=== PATIENT | female | born 2000 | race Caucasian/White ===

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

== ENCOUNTER 2022-01-11 19:39 | Emergency (ER) | payer BC ==
[2022-01-11 20:18] VITALS: TEMP 98.7
--- NOTE | 2022-01-11 20:47 | XR ---
EXAMINATION TYPE: XR abdomen 1V DATE OF EXAM: 01/11/2022 COMPARISON: NONE HISTORY: Epigastric pain TECHNIQUE: 2 views FINDINGS: 2 views upright show no sign of intestinal obstruction or pneumoperitoneum. Fecal pattern i s normal. No sign of a mass. No pathologic calcifications over the kidneys. IMPRESSION: Nonacute abdomen.
[2022-01-11] MEDS ORDERED: SODIUM CHLORIDE 0.9% 1,000 ML IV STA (20:57)
[2022-01-11] MEDS ORDERED: DICYCLOMINE 10 MG/ML 2 ML AMP IM STA (20:58)
[2022-01-11] MEDS ORDERED: PANTOPRAZOLE 40 MG/10 ML VIAL IVP STA (21:02)
--- NOTE | 2022-01-11 21:04 | ED ---
Abdominal Pain HPI - General Chief Complaint: Abdominal Pain Stated Complaint: ABD pain Time Seen by Provider: 01/11/22 20:49 Source: patient, family, RN notes reviewed, old records reviewed Mode of arrival: ambulatory Limitations: no limitations - History of Present Illness Initial Comments: Nontoxic-appearing obese 21-year-old female presents to the emergency room with family complaining of epigastric and upper abdominal pain since Sunday. She states he's had multiple episodes of vomiting that is green in color. She is also having diarrhea every time she vomits. Denies any fevers. She does have history of GERD, irritable bowel syndrome, anxiety and depression. She states she has seen gastroenterology in the past and was placed on Bentyl but has not had this medication in over 2 weeks. She denies any fevers. She is sexually active denies any vaginal discharge or vaginal bleeding. Does have an IUD. MD Complaint: abdominal pain -: days(s) (4) Location: LUQ, RUQ, epigastric Severity scale (1-10): 6 Quality: sharp, dull Consistency: constant Improves With: nothing Worsens With: other (Palpation) Associated Symptoms: nausea, vomiting, diarrhea - Related Data Home Medications Medication Instructions Recorded Confirmed L.acidoph,Paracasei, B.lactis 1 cap PO AC-TID 11/19/16 12/01/16 [Probiotic] Multivitamins, Thera [Multivitamin 1 tab PO DAILY 11/19/16 12/01/16 (formulary)] Psyllium Husk [Metamucil] 0.4 gm PO BID 11/19/16 12/01/16 Ranitidine HCl [Zantac] 150 mg PO QAM 11/19/16 12/01/16 HYDROcodone/APAP 5-325MG [[place] 1 tab PO Q6H PRN 12/01/16 12/01/16 5-325] Previous Rx's Medication Instructions Recorded Amoxicillin/Potassium Clav 1 each PO Q12HR #28 tab 11/23/16 [Augmentin 875-125 Tablet] HYDROcodone/APAP 5-325MG [[place] 1 - 2 tab PO Q4-6H PRN #45 tab 12/04/16 5-325] Cephalexin [Keflex] 500 mg PO Q12HR 5 Days #10 cap 01/11/22 Dicyclomine [Bentyl] 20 mg PO TID #30 tablet 01/11/22 Allergies Allergy/AdvReac Type Severity Reaction Status Date / Time No Known Allergies Allergy Verified 01/11/22 20:18 Review of Systems ROS Statement: Those systems with pertinent positive or pertinent negative responses have been documented in the HPI. ROS Other: All systems not noted in ROS Statement are negative. Past Medical History Past Medical History: GERD/Reflux Additional Past Medical History / Comment(s): FX LEFT CLAVICLE (FELL OFF GOLF CART ON 11/23/16). MOTHER STATES PATIENT HAS HAD PERIODIC UPPER ABDOMINAL PAIN, THAT SEEMS TO BE RELIEVED SHE HAS BEEN ON ANTIBIOTICS. History of Any Multi-Drug Resistant Organisms: None Reported Past Surgical History: No Surgical Hx Reported Past Anesthesia/Blood Transfusion Reactions: No Reported Reaction, Motion Sickness Additional Past Anesthesia/Blood Transfusion Reaction / Comment(s): NEVER HAD ANESTHESIA. Past Psychological History: Anxiety, Depression Smoking Status: Never smoker Past Alcohol Use History: Rare Past Drug Use History: Marijuana - Past Family History Mother Family Medical History: No Reported History General Exam Limitations: no limitations General appearance: alert, in no apparent distress Head exam: Present: atraumatic Eye exam: Absent: scleral icterus, conjunctival injection, periorbital swelling, periorbital tenderness Neck exam: Present: full ROM. Absent: meningismus Respiratory exam: Present: normal lung sounds bilaterally. Absent: respiratory distress, wheezes, rales, rhonchi, stridor, accessory muscle use, decreased tasha th sounds Cardiovascular Exam: Present: tachycardia GI/Abdominal exam: Present: soft, tenderness (RUQ, epigastric, LUQ). Absent: distended, rigid Extremities exam: Present: normal capillary refill. Absent: pedal edema Back exam: Present: normal inspection. Absent: tenderness, CVA tenderness (R), CVA tenderness (L), rash noted Neurological exam: Present: alert, oriented X3 Psychiatric exam: Present: normal affect, normal mood Skin exam: Present: warm, dry, normal color. Absent: rash, cyanosis, diaphoretic, petechiae, pallor Course Vital Signs 01/11/22 01/11/22 01/11/22 20:16 22:59 23:20 Temperature 98.7 F Pulse Rate 108 H 97 88 Respiratory 20 18 Rate Blood Pressure 153/85 133/74 O2 Sat by Pulse 97 100 99 Oximetry Medical Decision Making - Medical Decision Making Patient presents with nausea vomiting diarrhea and abdominal pain for 4 days. X-ray reviewed by me shows no evidence of free air or obstruction. IUD seen. Radiologist impression nonacute abdomen. Mild leukocytosis of 11.7 likely reactive to vomiting. Urinalysis shows 4+ ketones patient was given a liter and half of normal saline. UA with WBC and occasional bacteria. negative. She was treated with 1 g of Rocephin for UTI. She was also given Bentyl and Protonix for abdominal pain with relief. She was previously prescribed as this is a prescription she ran out of 2 weeks ago for her IBS. Her pain is likely related to her GERD and irritable bowel syndrome. Vital signs are stable, patient is afebrile. No right lower quadrant or left lower quadrant pain. She will be prescribed Keflex for UTI, Bentyl for IBS. She was directed to follow up with her primary care doctor as scheduled tomorrow and return to the emergency room with any new or concerning symptoms. Patient is agreeable to this plan of care. Case discussed with Dr. Dong - Lab Data Result diagrams: 01/11/22 21:31 01/11/22 21:31 Lab Results 01/11/22 01/11/22 01/11/22 Range/Units 21:31 21:31 21:31 WBC 11.7 H (4.0-11.0) k/uL RBC 5.90 H (3.80-5.40) m/uL Hgb 14.1 (11.4-16.0) gm/dL Hct 44.7 (34.0-46.0) % MCV 75.8 L (80.0-100.0) fL MCH 24.0 L (25.0-35.0) pg MCHC 31.6 (31.0-37.0) g/dL RDW 15.2 (11.5-15.5) % Plt Count 501 H (150-450) k/uL MPV 6.8 Neutrophils % 72 % Lymphocytes % 20 % Monocytes % 5 % Eosinophils % 1 % Basophils % 1 % Neutrophils # 8.4 H (1.3-7.7) k/uL Lymphocytes # 2.4 (1.0-4.8) k/uL Monocytes # 0.6 (0-1.0) k/uL Eosinophils # 0.1 (0-0.7) k/uL Basophils # 0.1 (0-0.2) k/uL Hypochromasia Slight Microcytosis Slight PT 11.3 (9.0-12.0) sec INR 1.0 (<1.2) APTT 27.6 (22.0-30.0) sec Sodium 139 (137-145) mmol/L Potassium 3.8 (3.5-5.1) mmol/L Chloride 99 (98-107) mmol/L Carbon Dioxide 23 (22-30) mmol/L Anion Gap 17 mmol/L BUN 19 H (7-17) mg/dL Creatinine 0.81 (0.52-1.04) mg/dL Est GFR (CKD-EPI)AfAm >90 (>60 ml/min/1.73 sqM) Est GFR (CKD-EPI)NonAf >90 (>60 ml/min/1.73 sqM) Glucose 103 H (74-99) mg/dL Plasma Lactic Acid Param (0.7-2.0) mmol/L Calcium 10.0 (8.4-10.2) mg/dL Total Bilirubin 0.7 (0.2-1.3) mg/dL AST 41 H (14-36) U/L ALT 62 H (4-34) U/L Alkaline Phosphatase 93 (38-126) U/L Total Protein 8.8 H (6.3-8.2) g/dL Albumin 5.4 H (3.5-5.0) g/dL Amylase 40 (30-110) U/L Lipase 74 (23-300) U/L Urine Color Urine Appearance (Clear) Urine pH (5.0-8.0) Ur Specific [place] (1.001-1.035) Urine Protein (Negative) Urine Glucose (UA) (Negative) Urine Ketones (Negative) Urine Blood (Negative) Urine Nitrite (Negative) Urine Bilirubin (Negative) Urine Urobilinogen (<2.0) mg/dL Ur Leukocyte Esterase (Negative) Urine RBC (0-5) /hpf Urine WBC (0-5) /hpf Ur Squamous Epith Cells (0-4) /hpf Urine Bacteria (None) /hpf Urine Mucus (None) /hpf Urine HCG, Qual (Not Detectd) 11/09/22 11/09/22 11/09/22 Range/Units 21:31 21:46 21:46 WBC (4.0-11.0) k/uL RBC (3.80-5.40) m/uL Hgb (11.4-16.0) gm/dL Hct (34.0-46.0) % MCV (80.0-100.0) fL MCH (25.0-35.0) pg MCHC (31.0-37.0) g/dL RDW (11.5-15.5) % Plt Count (150-450) k/uL MPV Neutrophils % % Lymphocytes % % Monocytes % % Eosinophils % % Basophils % % Neutrophils # (1.3-7.7) k/uL Lymphocytes # (1.0-4.8) k/uL Monocytes # (0-1.0) k/uL Eosinophils # (0-0.7) k/uL Basophils # (0-0.2) k/uL Hypochromasia Microcytosis PT (9.0-12.0) sec INR (<1.2) APTT (22.0-30.0) sec Sodium (137-145) mmol/L Potassium (3.5-5.1) mmol/L Chloride (98-107) mmol/L Carbon Dioxide (22-30) mmol/L Anion Gap mmol/L BUN (7-17) mg/dL Creatinine (0.52-1.04) mg/dL Est GFR (CKD-EPI)AfAm (>60 ml/min/1.73 sqM) Est GFR (CKD-EPI)NonAf (>60 ml/min/1.73 sqM) Glucose (74-99) mg/dL Plasma Lactic Acid Param 1.5 (0.7-2.0) mmol/L Calcium (8.4-10.2) mg/dL Total Bilirubin (0.2-1.3) mg/dL AST (14-36) U/L ALT (4-34) U/L Alkaline Phosphatase (38-126) U/L Total Protein (6.3-8.2) g/dL Albumin (3.5-5.0) g/dL Amylase (30-110) U/L Lipase (23-300) U/L Urine Color Yellow Urine Appearance Turbid H (Clear) Urine pH 6.0 (5.0-8.0) Ur Specific [place] 1.041 H (1.001-1.035) Urine Protein 2+ H (Negative) Urine Glucose (UA) Negative (Negative) Urine Ketones 4+ H (Negative) Urine Blood Negative (Negative) Urine Nitrite Negative (Negative) Urine Bilirubin 1+ H (Negative) Urine Urobilinogen 4.0 (<2.0) mg/dL Ur Leukocyte Esterase Large H (Negative) Urine RBC 6 H (0-5) /hpf Urine WBC 34 H (0-5) /hpf Ur Squamous Epith Cells 77 H (0-4) /hpf Urine Bacteria Occasional H (None) /hpf Urine Mucus Many H (None) /hpf Urine HCG, Qual Not Detected (Not Detectd) Disposition Clinical Impression: UTI (urinary tract infection), Abdominal pain Disposition: HOME SELF-CARE Instructions (If sedation given, give patient instructions): Urinary Tract Infection in Women (ED), Abdominal Pain (ED) Additional Instructions: Take antibiotics and Bentyl as prescribed. Increase your fluid intake. Follow- up with the primary care doctor as scheduled tomorrow. Return to the emergency room with any new or concerning symptoms. Prescriptions: Dicyclomine [Bentyl] 20 mg PO TID #30 tablet Cephalexin [Keflex] 500 mg PO Q12HR 5 Days #10 cap Is patient prescribed a controlled substance at d/c from ED?: No Referrals: Jaswinder Ceballos DO [Primary Care Provider] - 1-2 days Time of Disposition: 22:49
[2022-01-11 22:02] LABS: Basophils # (A) 0.1 k/uL (0-0.2); Basophils % (A) 1 %; Eosinophils # (A) 0.1 k/uL (0-0.7); Eosinophils % (A) 1 %; HCT 44.7 % (34.0-46.0); HGB 14.1 gm/dL (11.4-16.0); Hypochromasia Slight; Lymphocytes # (A) 2.4 k/uL (1.0-4.8); Lymphocytes % (A) 20 %; MCHC 31.6 g/dL (31.0-37.0); MCV 75.8 fL (80.0-100.0); Mean Platelet Volume 6.8; Microcytosis Slight; Monocytes # (A) 0.6 k/uL (0-1.0); Monocytes % (A) 5 %; Neutrophils # (A) 8.4 k/uL (1.3-7.7); Neutrophils % (A) 72 %; Platelet Count 501 k/uL (150-450); RDW 15.2 % (11.5-15.5); WBC 11.7 k/uL (4.0-11.0)
[2022-01-11 22:12] LABS: Partial Thromboplastin Time 27.6 sec (22.0-30.0); Prothrombin Time 11.3 sec (9.0-12.0)
[2022-01-11 22:16] LABS: Appearance,Urine Turbid (Clear); Bacteria,Urine Occasional /hpf; Bilirubin,Urine 1+ (Negative); Blood,Urine Negative (Negative); Color,Urine Yellow; Glucose,Urine (UA) Negative (Negative); Ketones,Urine 4+ (Negative); Leukocyte Esterase,Urine Large (Negative); Mucus,Urine Many /hpf; Nitrite,Urine Negative (Negative); Protein,Urine 2+ (Negative); RBC,Urine 6 /hpf (0-5); Specific Gravity,Urine 1.041 (1.001-1.035); Squamous Epithelial Cell,Urine 77 /hpf (0-4); WBC,Urine 34 /hpf (0-5)
[2022-01-11 22:18] LABS: ALT 62 U/L (4-34); AST 41 U/L (14-36); African American GFR (CKD) >90 (>60 ml/min/1.73 sqM); Albumin 5.4 g/dL (3.5-5.0); Alkaline Phosphatase 93 U/L (38-126); Amylase 40 U/L (30-110); Anion Gap 17 mmol/L; Blood Urea Nitrogen 19 mg/dL (7-17); Carbon Dioxide 23 mmol/L (22-30); Chloride 99 mmol/L (98-107); Glucose 103 mg/dL (74-99); Lipase 74 U/L (23-300); Non-African American GFR(CKD) >90 (>60 ml/min/1.73 sqM); Potassium 3.8 mmol/L (3.5-5.1); Sodium 139 mmol/L (137-145); Total Bilirubin 0.7 mg/dL (0.2-1.3); Total Protein 8.8 g/dL (6.3-8.2)
[2022-01-11] MEDS ORDERED: cefTRIAXone IN SWFI 1,000 MG/10 ML SYRINGE IVP STA (22:19)
[2022-01-11] MEDS ORDERED: SODIUM CHLORIDE 0.9% 500 ML 500 ML IV ONE (22:21)
[2022-01-11] MEDS ORDERED: VANCOMYCIN IV PER PHARMACY 1 EACH MISC MISCELLANE PRN (22:39)
[2022-01-11] MEDS ORDERED: CEFEPIME 1 GM in SODIUM CHLORIDE 0.9% 50 ML IVPB STA (22:39)
[2022-01-11 23:20] VITALS: BP 133/74; PULSE 88; RESP 18
== END 2022-01-11 23:20 | disposition home or self-care (01) ==
LOC: EC 19:39
DX: N39.0 Urinary tract infection, site not specified (principal); K21.9 Gastro-esophageal reflux disease without esophagitis; F41.9 Anxiety disorder, unspecified; F32.A Depression, unspecified; F12.90 Cannabis use, unspecified, uncomplicated; Z79.899 Other long term (current) drug therapy
CPT/HCPCS: 36415; 80053; 82150; 83605; 83690; 85025; 85610; 85730; 81001; 81025; 87086; 74018; 99284; 96374; 96375; 96361 ×3; 96372; J0500; J0696; C9113

== ENCOUNTER 2022-02-22 11:07 | Emergency (ER) | payer BC ==
[2022-02-22 11:23] VITALS: RESP 20
[2022-02-22] MEDS ORDERED: SODIUM CHLORIDE 0.9% 1,000 ML IV STA (12:03)
--- NOTE | 2022-02-22 12:08 | ED ---
Abdominal Pain HPI - General Chief Complaint: Abdominal Pain Stated Complaint: abd pain Time Seen by Provider: 02/22/22 11:56 Source: patient, family, RN notes reviewed, old records reviewed Mode of arrival: ambulatory Limitations: no limitations - History of Present Illness Initial Comments: This is a nontoxic-appearing 21-year-old obese female that presents to the emergency room with family stating she was sent by her hand straightener Marilu Bernardo NP. She has orders for labs and stat CT of the abdomen related to chronic abdominal pain with persistent nausea vomiting. Patient states that abdominal pain became worse on Sunday night with mucousy diarrhea. Denies any fevers. Denies any chance of . MD Complaint: abdominal pain -: days(s) (4), month(s) Location: diffuse Radiation: none Severity scale (1-10): 6 Consistency: constant Improves With: nothing Worsens With: nothing Associated Symptoms: nausea, vomiting, diarrhea, chills - Related Data Home Medications Medication Instructions Recorded Confirmed Dicyclomine [Bentyl] 20 mg PO QID 02/22/22 02/22/22 Famotidine [Pepcid] 20 mg PO BID 02/22/22 02/22/22 Prochlorperazine [Compazine] 5 mg PO BID 02/22/22 02/22/22 Promethazine Suppository 12.5 mg RECTAL DAILY 02/22/22 02/22/22 [Phenergan] Venlafaxine HCl ER [Effexor Xr] 75 mg PO DAILY 02/22/22 02/22/22 Allergies Allergy/AdvReac Type Severity Reaction Status Date / Time Iodinated Contrast Media AdvReac Family Verified 02/22/22 13:28 history Review of Systems ROS Statement: Those systems with pertinent positive or pertinent negative responses have been documented in the HPI. ROS Other: All systems not noted in ROS Statement are negative. Past Medical History Past Medical History: GERD/Reflux Additional Past Medical History / Comment(s): FX LEFT CLAVICLE (FELL OFF GOLF CART ON 11/23/16). MOTHER STATES PATIENT HAS HAD PERIODIC UPPER ABDOMINAL PAIN, THAT SEEMS TO BE RELIEVED SHE HAS BEEN ON ANTIBIOTICS. History of Any Multi-Drug Resistant Organisms: None Reported Past Surgical History: No Surgical Hx Reported Past Anesthesia/Blood Transfusion Reactions: No Reported Reaction, Motion Sickness Additional Past Anesthesia/Blood Transfusion Reaction / Comment(s): NEVER HAD ANESTHESIA. Past Psychological History: Anxiety, Depression Smoking Status: Never smoker Past Alcohol Use History: Rare Past Drug Use History: Marijuana - Past Family History Mother Family Medical History: No Reported History General Exam Limitations: no limitations General appearance: alert, in no apparent distress Head exam: Present: atraumatic, normocephalic Eye exam: Present: normal appearance. Absent: scleral icterus, conjunctival injection, periorbital swelling ENT exam: Present: mucous membranes moist Neck exam: Present: full ROM. Absent: tenderness, meningismus, lymphadenopathy Respiratory exam: Present: normal lung sounds bilaterally. Absent: respiratory distress, accessory muscle use Cardiovascular Exam: Present: regular rate GI/Abdominal exam: Present: soft, tenderness (Diffuse). Absent: distended, rigid Back exam: Present: full ROM. Absent: tenderness, CVA tenderness (R), CVA tenderness (L), muscle spasm, paraspinal tenderness, vertebral tenderness, rash noted Neurological exam: Present: alert, oriented X3 Psychiatric exam: Present: anxious Skin exam: Present: warm, dry, normal color. Absent: cyanosis, diaphoretic, petechiae, pallor Course Vital Signs 02/22/22 11:21 Temperature 98.7 F Pulse Rate 82 Respiratory 20 Rate Blood Pressure 119/76 O2 Sat by Pulse 99 Oximetry Medical Decision Making - Medical Decision Making Patient has been seen multiple times in the emergency room for chronic abdominal pain. She was sent by gastroenterology today for CT and labs. CT abdomen and pelvis interpreted by the radiologist : No calcified gallstones. Mild hepatic steatosis. No inflammation or mass of the pancreas. No nodules or thickening of the adrenals. No hydronephrosis or nephrolithiasis or renal mass. Normal appendix. Impression is small bowel enteritis and left ovarian dermoid lesion. Labs show mild leukocytosis which is consistent with patient's vomiting. Electrolytes show a CRP of 1.6 and ESR of 30. Urinalysis 4+ ketones consistent with patient's persistent vomiting and dehydration. Influenza and RSV and coronavirus swab is negative. Patient was given droperidol and IV fluids. She was sitting up in the bed drinking water states she is feeling better. This is likely gastroenteritis. Directed to follow up with her hand straightener for continuation of care and return to the emergency room with a new concerning symptoms. She and mother are agreeable to this plan of care. Case discussed with Dr. Merlos Was pt. sent in by a medical professional or institution? 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 @ Mother Did you review nursing and triage notes? @ Agree Were old charts reviewed? @ Previous emergency room record Differential Diagnosis? @ Appendicitis, intestinal obstruction, viral illness, urinary tract infection, , cholecystitis EKG interpreted by me (3pts min.)? @ Not applicable X-rays interpreted by me (1pt min.)? @ Not applicable CT interpreted by me (1pt min.)? @ Yes, no evidence of free air or intestinal obstruction, IUD in place, left ovarian cyst U/S interpreted by me (1pt. min.)? @ Not applicable What testing was considered but not performed? (CT, X-rays, U/S, labs)? Why? @ None What meds were considered but not given? Why? @ Did consider using Bentyl if the droperidol and IV fluids did not resolve the patient's nausea vomiting. This medication was not needed. Did you discuss the management of the patient with other professionals? @ No Did you reconcile home meds? @ No Was smoking cessation discussed for >3mins.? @ No Was critical care preformed (if so, how long)? @ No Were there social determinants of health that impacted care today? How? (Homelessness, low income, unemployed, alcoholism, drug addiction, transportation, low edu. Level, literacy, decrease access to med. care, detention, rehab)? @ No Was there de-escalation of care discussed even if they declined? (Discuss DNR or withdrawal of care, Hospice)? @ Not applicable What co-morbidities impacted this encounter? (DM, HTN, Smoking, COPD, CAD, Cancer, CVA, Hep., AIDS, mental health diagnosis, sleep apnea, morbid obesity)? @ Morbid obesity Was patient admitted / discharged? @ Discharged Undiagnosed new problem with uncertain prognosis? @ Not applicable Drug Therapy requiring intensive monitoring for toxicity (Heparin, Nitro, Insulin, Cardizem)? @ None Were any procedures done? @ None Diagnosis/symptom? @ Gastroenteritis, chronic abdominal pain Acute, or Chronic, or Acute on Chronic? @ Acute on chronic Uncomplicated (without systemic symptoms) or Complicated (systemic symptoms)? @ Uncomplicated Side effects of treatment? @ None Exacerbation, Progression, or Severe Exacerbation] @ Exacerbation Poses a threat to life or bodily function? @ No - Lab Data Result diagrams: 02/22/22 12:31 02/22/22 12:31 Lab Results 02/22/22 02/22/22 02/22/22 Range/Units 12:31 12:31 12:31 WBC 12.8 H (4.0-11.0) k/uL RBC 5.86 H (3.80-5.40) m/uL Hgb 14.2 (11.4-16.0) gm/dL Hct 44.3 (34.0-46.0) % MCV 75.6 L (80.0-100.0) fL MCH 24.2 L (25.0-35.0) pg MCHC 32.0 (31.0-37.0) g/dL RDW 15.6 H (11.5-15.5) % Plt Count 542 H (150-450) k/uL MPV 6.8 Neutrophils % 73 % Lymphocytes % 20 % Monocytes % 5 % Eosinophils % 1 % Basophils % 1 % Neutrophils # 9.3 H (1.3-7.7) k/uL Lymphocytes # 2.5 (1.0-4.8) k/uL Monocytes # 0.6 (0-1.0) k/uL Eosinophils # 0.1 (0-0.7) k/uL Basophils # 0.1 (0-0.2) k/uL Hypochromasia Slight Microcytosis Slight ESR 30 H (0-20) mm/hr Sodium 142 (137-145) mmol/L Potassium 4.3 (3.5-5.1) mmol/L Chloride 106 (98-107) mmol/L Carbon Dioxide 20 L (22-30) mmol/L Anion Gap 16 mmol/L BUN 17 (7-17) mg/dL Creatinine 0.69 (0.52-1.04) mg/dL Est GFR (CKD-EPI)AfAm >90 (>60 ml/min/1.73 sqM) Est GFR (CKD-EPI)NonAf >90 (>60 ml/min/1.73 sqM) Glucose 86 (74-99) mg/dL Plasma Lactic Acid Param 2.0 (0.7-2.0) mmol/L Calcium 10.2 (8.4-10.2) mg/dL Total Bilirubin 0.7 (0.2-1.3) mg/dL AST 44 H (14-36) U/L ALT 50 H (4-34) U/L Alkaline Phosphatase 102 (38-126) U/L C-Reactive Protein 1.6 H (<1.0) mg/dL Total Protein 9.1 H (6.3-8.2) g/dL Albumin 5.1 H (3.5-5.0) g/dL Amylase 46 (30-110) U/L Lipase 96 (23-300) U/L HCG, Qual Urine Color Urine Appearance (Clear) Urine pH (5.0-8.0) Ur Specific [place] (1.001-1.035) Urine Protein (Negative) Urine Glucose (UA) (Negative) Urine Ketones (Negative) Urine Blood (Negative) Urine Nitrite (Negative) Urine Bilirubin (Negative) Urine Urobilinogen (<2.0) mg/dL Ur Leukocyte Esterase (Negative) Urine RBC (0-5) /hpf Urine WBC (0-5) /hpf Ur Squamous Epith Cells (0-4) /hpf Urine Mucus (None) /hpf Influenza Type A (PCR) (Not Detectd) Influenza Type B (PCR) (Not Detectd) RSV (PCR) (Not Detectd) SARS-CoV-2 (PCR) (Not Detectd) 02/22/22 02/22/22 02/22/22 Range/Units 12:31 12:31 14:54 WBC (4.0-11.0) k/uL RBC (3.80-5.40) m/uL Hgb (11.4-16.0) gm/dL Hct (34.0-46.0) % MCV (80.0-100.0) fL MCH (25.0-35.0) pg MCHC (31.0-37.0) g/dL RDW (11.5-15.5) % Plt Count (150-450) k/uL MPV Neutrophils % % Lymphocytes % % Monocytes % % Eosinophils % % Basophils % % Neutrophils # (1.3-7.7) k/uL Lymphocytes # (1.0-4.8) k/uL Monocytes # (0-1.0) k/uL Eosinophils # (0-0.7) k/uL Basophils # (0-0.2) k/uL Hypochromasia Microcytosis ESR (0-20) mm/hr Sodium (137-145) mmol/L Potassium (3.5-5.1) mmol/L Chloride (98-107) mmol/L Carbon Dioxide (22-30) mmol/L Anion Gap mmol/L BUN (7-17) mg/dL Creatinine (0.52-1.04) mg/dL Est GFR (CKD-EPI)AfAm (>60 ml/min/1.73 sqM) Est GFR (CKD-EPI)NonAf (>60 ml/min/1.73 sqM) Glucose (74-99) mg/dL Plasma Lactic Acid Param (0.7-2.0) mmol/L Calcium (8.4-10.2) mg/dL Total Bilirubin (0.2-1.3) mg/dL AST (14-36) U/L ALT (4-34) U/L Alkaline Phosphatase (38-126) U/L C-Reactive Protein (<1.0) mg/dL Total Protein (6.3-8.2) g/dL Albumin (3.5-5.0) g/dL Amylase (30-110) U/L Lipase (23-300) U/L HCG, Qual Not Detected Urine Color Yellow Urine Appearance Clear (Clear) Urine pH 7.0 (5.0-8.0) Ur Specific [place] >1.050 H (1.001-1.035) Urine Protein 1+ H (Negative) Urine Glucose (UA) Negative (Negative) Urine Ketones 4+ H (Negative) Urine Blood Negative (Negative) Urine Nitrite Negative (Negative) Urine Bilirubin Negative (Negative) Urine Urobilinogen <2.0 (<2.0) mg/dL Ur Leukocyte Esterase Moderate H (Negative) Urine RBC 5 (0-5) /hpf Urine WBC 4 (0-5) /hpf Ur Squamous Epith Cells 12 H (0-4) /hpf Urine Mucus Rare H (None) /hpf Influenza Type A (PCR) Not Detected (Not Detectd) Influenza Type B (PCR) Not Detected (Not Detectd) RSV (PCR) Not Detected (Not Detectd) SARS-CoV-2 (PCR) Not Detected (Not Detectd) Disposition Clinical Impression: Gastroenteritis, Ovarian cyst Disposition: HOME SELF-CARE Condition: Good Instructions (If sedation given, give patient instructions): Ovarian Cyst (ED), Gastroenteritis (ED) Additional Instructions: Increase your fluid intake. Follow-up with your hand straightener this week. Return to the emergency room with any new or concerning symptoms. Is patient prescribed a controlled substance at d/c from ED?: No Referrals: Jaswinder Ceballos DO [Primary Care Provider] - 1-2 days Time of Disposition: 15:31
[2022-02-22 13:05] LABS: Basophils # (A) 0.1 k/uL (0-0.2); Basophils % (A) 1 %; Eosinophils # (A) 0.1 k/uL (0-0.7); Eosinophils % (A) 1 %; HCT 44.3 % (34.0-46.0); HGB 14.2 gm/dL (11.4-16.0); Hypochromasia Slight; Lymphocytes # (A) 2.5 k/uL (1.0-4.8); Lymphocytes % (A) 20 %; MCH 24.2 pg (25.0-35.0); MCV 75.6 fL (80.0-100.0); Mean Platelet Volume 6.8; Microcytosis Slight; Monocytes # (A) 0.6 k/uL (0-1.0); Monocytes % (A) 5 %; Neutrophils # (A) 9.3 k/uL (1.3-7.7); Neutrophils % (A) 73 %; Platelet Count 542 k/uL (150-450); RBC 5.86 m/uL (3.80-5.40); RDW 15.6 % (11.5-15.5); WBC 12.8 k/uL (4.0-11.0)
[2022-02-22 13:06] LABS: ALT 50 U/L (4-34); AST 44 U/L (14-36); African American GFR (CKD) >90 (>60 ml/min/1.73 sqM); Albumin 5.1 g/dL (3.5-5.0); Alkaline Phosphatase 102 U/L (38-126); Amylase 46 U/L (30-110); Anion Gap 16 mmol/L; Blood Urea Nitrogen 17 mg/dL (7-17); C Reactive Protein 1.6 mg/dL (<1.0); Calcium 10.2 mg/dL (8.4-10.2); Carbon Dioxide 20 mmol/L (22-30); Chloride 106 mmol/L (98-107); Glucose 86 mg/dL (74-99); Lipase 96 U/L (23-300); Non-African American GFR(CKD) >90 (>60 ml/min/1.73 sqM); Potassium 4.3 mmol/L (3.5-5.1); Sodium 142 mmol/L (137-145); Total Bilirubin 0.7 mg/dL (0.2-1.3); Total Protein 9.1 g/dL (6.3-8.2)
[2022-02-22 14:34] LABS: Erythrocyte Sedimentation Rate 30 mm/hr (0-20)
--- NOTE | 2022-02-22 15:08 | CT ---
EXAMINATION TYPE: CT abdomen pelvis w con DATE OF EXAM: 02/22/2022 COMPARISON: None HISTORY: Abdominal pain CONTRAST: CT scan of the abdomen and pelvis is performed without Oral Contrast and with IV Contrast, patient in jected with 100 mL of Isovue 300. FINDINGS: LUNG BASES-: No visible nodule. No infiltrate. LIVER/GB: No calcified gallstones. Mild hepatic steatosis suggested. No space occupying hepatic le pricila. Biliary tree is of normal caliber. PANCREAS: No inflammation. No distinct mass. SPLEEN: No splenic enlargement. No lesion seen. ADRENALS: No nodule. No thickening. KIDNEYS/BLADDER: No hydronephrosis. No nephrolithiasis. No distinct renal mass. Urinary bladder g rossly unremarkable. BOWEL: Normal appendix. Thickening of jejunal loops could reflect enteritis. No evidence for obstruct ion. Colon is of normal caliber. GENITAL ORGANS: IUD is noted to be in place. Fatty lesion left ovary compatible with dermoid measuri ng 2.6 cm. The right ovary is unremarkable. LYMPH NODES: No greater than 1cm abdominal or pelvic lymph nodes are appreciated. AORTA: No significant abnormality. OSSEOUS STRUCTURES: No significant abnormality is seen. OTHER: No significant additional abnormality is seen. IMPRESSION: 1. Correlate for small bowel enteritis. 2. Left ovarian dermoid lesion.
[2022-02-22 15:10] LABS: Appearance,Urine Clear (Clear); Bilirubin,Urine Negative (Negative); Blood,Urine Negative (Negative); Color,Urine Yellow; Glucose,Urine (UA) Negative (Negative); Ketones,Urine 4+ (Negative); Leukocyte Esterase,Urine Moderate (Negative); Mucus,Urine Rare /hpf; Nitrite,Urine Negative (Negative); Protein,Urine 1+ (Negative); RBC,Urine 5 /hpf (0-5); Specific Gravity,Urine >1.050 (1.001-1.035); Squamous Epithelial Cell,Urine 12 /hpf (0-4); Urobilinogen,Urine <2.0 mg/dL (<2.0); WBC,Urine 4 /hpf (0-5)
[2022-02-22 23:30] VITALS: BP 110/58; PULSE 80; TEMP 97.8
== END 2022-02-22 16:00 | disposition home or self-care (01) ==
LOC: EC 11:07
DX: K52.9 Noninfective gastroenteritis and colitis, unspecified (principal); N83.202 Unspecified ovarian cyst, left side; K21.9 Gastro-esophageal reflux disease without esophagitis; F41.9 Anxiety disorder, unspecified; F32.A Depression, unspecified; F12.90 Cannabis use, unspecified, uncomplicated; Z91.041 Radiographic dye allergy status; Z20.822 Contact with and (suspected) exposure to COVID-19; Z79.899 Other long term (current) drug therapy
CPT/HCPCS: 99284; 96374; 96361; 36415; 80053; 85652; 82150; 83605; 83690; 85025; 86140; 81001; 84703; 87636; 74177; Q9967; J1790

== ENCOUNTER 2022-08-23 22:47 | Emergency (ER) | payer BC ==
[2022-08-23 22:52] VITALS: TEMP 97.7
[2022-08-24 00:49] LABS: Basophils % (A) 0 %; Eosinophils # (A) 0.2 k/uL (0-0.7); Eosinophils % (A) 2 %; HCT 41.6 % (34.0-46.0); HGB 13.1 gm/dL (11.4-16.0); Lymphocytes # (A) 2.1 k/uL (1.0-4.8); Lymphocytes % (A) 20 %; MCH 24.6 pg (25.0-35.0); MCHC 31.4 g/dL (31.0-37.0); MCV 78.3 fL (80.0-100.0); Mean Platelet Volume 7.2; Microcytosis Slight; Monocytes # (A) 0.6 k/uL (0-1.0); Monocytes % (A) 6 %; Neutrophils # (A) 7.5 k/uL (1.3-7.7); Neutrophils % (A) 71 %; Platelet Count 409 k/uL (150-450); RBC 5.32 m/uL (3.80-5.40); RDW 15.7 % (11.5-15.5); WBC 10.7 k/uL (4.0-11.0)
[2022-08-24 00:59] LABS: Appearance,Urine Cloudy (Clear); Bacteria,Urine Rare /hpf; Bilirubin,Urine Negative (Negative); Blood,Urine Negative (Negative); Calcium Oxalate Crystals,Urine Many /hpf; Color,Urine Yellow; Glucose,Urine (UA) Negative (Negative); Ketones,Urine Negative (Negative); Leukocyte Esterase,Urine Small (Negative); Mucus,Urine Occasional /hpf; Nitrite,Urine Negative (Negative); PH, Urine 6.5 (5.0-8.0); Protein,Urine Trace (Negative); RBC,Urine 4 /hpf (0-5); Specific Gravity,Urine 1.027 (1.001-1.035); Squamous Epithelial Cell,Urine 18 /hpf (0-4); WBC,Urine 3 /hpf (0-5)
[2022-08-24 01:01] LABS: ALT 72 U/L (4-34); AST 30 U/L (14-36); African American GFR (CKD) >90 (>60 ml/min/1.73 sqM); Albumin 4.3 g/dL (3.5-5.0); Alkaline Phosphatase 77 U/L (38-126); Anion Gap 10 mmol/L; Blood Urea Nitrogen 7 mg/dL (7-17); Calcium 9.5 mg/dL (8.4-10.2); Carbon Dioxide 25 mmol/L (22-30); Chloride 105 mmol/L (98-107); Glucose 107 mg/dL (74-99); Non-African American GFR(CKD) >90 (>60 ml/min/1.73 sqM); Potassium 3.7 mmol/L (3.5-5.1); Sodium 140 mmol/L (137-145); Total Bilirubin 0.3 mg/dL (0.2-1.3); Total Protein 7.5 g/dL (6.3-8.2)
[2022-08-24] MEDS ORDERED: MORPHINE SULFATE 4 MG/ML SYRINGE IVP STA (01:10)
--- NOTE | 2022-08-24 01:24 | US ---
EXAM: US Pelvis, transvaginal. CLINICAL HISTORY: rlq pain, vag bleed TECHNIQUE: Real-time transvaginal pelvic ultrasound with image documentation. COMPARISON: No relevant prior studies available. FINDINGS: Uterus/cervix: The uterus is normal in size at 7.1 x 3.1 x 2.2 cm. Normal endometrial stripe thickness at 4 mm. An IUD is seen in the uterus. No myometrial mass. Right ovary: Unremarkable. 2.9 x 2.3 x 2.0 cm. No mass. Normal blood flow. Left ovary: 3.9 x 3.1 x 2.9 cm. Extensive central echogenic area consistent with fat density of a dermoid. This is seen on recent CT scan. Normal blood flow. Free fluid: No free fluid. IMPRESSION: IUD within the uterus. Uterus otherwise unremarkable. Left ovarian dermoid.
[2022-08-24 01:39] VITALS: RESP 18
[2022-08-24] MEDS ORDERED: ACET/COD 300 MG/30 MG STARTER PACK 6 TAB BTL PO STA (03:06)
--- NOTE | 2022-08-24 03:09 | ED ---
General Adult HPI - General Chief complaint: Vaginal Bleeding Stated complaint: Ovarian cyst rupture Time Seen by Provider: 08/23/22 22:50 Source: patient Mode of arrival: ambulatory Limitations: no limitations - History of Present Illness Initial comments: 21-year-old female presents emergency Department with vaginal bleeding and bilateral lower pelvic pain. She states that she has an IUD and therefore does not have normal menstrual cycles. As of recently the patient has been having heavy, bright vaginal bleeding with associated bilateral lower abdominal cramping. States she has a history of ovarian cysts and is concerned for ovarian rupture. States that she is scheduled to have an ultrasound in September for reevaluation of her left-sided ovarian cyst. She denies dysuria, hematuria or difficulty voiding. No diarrhea, constipation, black or bloody stools. Is sexually active. No concern for sexually transmitted infections or . No other alleviating, precipitating or modifying factors - Related Data Home Medications Medication Instructions Recorded Confirmed Dicyclomine [Bentyl] 20 mg PO QID 02/22/22 04/05/22 Famotidine [Pepcid] 20 mg PO BID 02/22/22 04/05/22 Prochlorperazine [Compazine] 5 mg PO BID 02/22/22 04/05/22 Allergies Allergy/AdvReac Type Severity Reaction Status Date / Time Iodinated Contrast Media AdvReac Family Verified 08/23/22 22:52 history Review of Systems ROS Statement: Those systems with pertinent positive or pertinent negative responses have been documented in the HPI. ROS Other: All systems not noted in ROS Statement are negative. Past Medical History Past Medical History: GERD/Reflux Additional Past Medical History / Comment(s): FX LEFT CLAVICLE (FELL OFF GOLF CART ON 11/23/16). MOTHER STATES PATIENT HAS HAD PERIODIC UPPER ABDOMINAL PAIN, N/V/D History of Any Multi-Drug Resistant Organisms: None Reported Past Surgical History: Orthopedic Surgery Additional Past Surgical History / Comment(s): LT CLAVICLE SX Past Anesthesia/Blood Transfusion Reactions: Motion Sickness, Postoperative Nausea & Vomiting (PONV) Additional Past Anesthesia/Blood Transfusion Reaction / Comment(s): NEVER HAD ANESTHESIA. Past Psychological History: Anxiety, Depression Smoking Status: Never smoker Past Alcohol Use History: None Reported Past Drug Use History: None Reported - Past Family History Mother Family Medical History: No Reported History General Exam Limitations: no limitations General appearance: alert, in no apparent distress Head exam: Present: atraumatic, normocephalic, normal inspection Eye exam: Present: normal appearance, PERRL, EOMI. Absent: scleral icterus, conjunctival injection, periorbital swelling ENT exam: Present: normal exam, mucous membranes moist Neck exam: Present: normal inspection. Absent: tenderness, meningismus, lymphadenopathy Respiratory exam: Present: normal lung sounds bilaterally. Absent: respiratory distress, wheezes, rales, rhonchi, stridor Cardiovascular Exam: Present: regular rate, normal rhythm, normal heart sounds. Absent: systolic murmur, diastolic murmur, rubs, gallop, clicks GI/Abdominal exam: Present: soft, tenderness (bilateral lower qudrant), normal bowel sounds. Absent: distended, guarding, rebound, rigid Extremities exam: Present: normal inspection, full ROM, normal capillary refill. Absent: tenderness, pedal edema, joint swelling, calf tenderness Back exam: Present: normal inspection Neurological exam: Present: alert, oriented X3, CN II-XII intact Psychiatric exam: Present: normal affect, normal mood Skin exam: Present: warm, dry, intact, normal color. Absent: rash Course Vital Signs 08/23/22 08/24/22 08/24/22 22:48 01:38 03:18 Temperature 97.7 F Pulse Rate 96 75 78 Respiratory 20 18 18 Rate Blood Pressure 134/75 129/61 109/63 O2 Sat by Pulse 96 98 97 Oximetry Medical Decision Making - Medical Decision Making Was pt. sent in by a medical professional or institution (, PA, FLEXOGRAPHIC PRESS SET UP OPERATOR, urgent care, hospital, or snf...) When possible be specific @ -No Did you speak to anyone other than the patient for history (EMS, parent, family, police, friend...)? What history was obtained from this source @ -No Did you review nursing and triage notes (agree or disagree)? Why? @ -I reviewed and agree with nursing and triage notes Were old charts reviewed (outside hosp., previous admission, EMS record, old EKG, old radiological studies, urgent care reports/EKG's, snf records)? Report findings @ -No old charts were reviewed Differential Diagnosis (chest pain, altered mental status, abdominal pain women, abdominal pain men, vaginal bleeding, weakness, fever, dyspnea, syncope, headache, dizziness, GI bleed, back pain, seizure, CVA, palpatations, mental he alth, musculoskeletal)? @ -appendicitis, endometriosis, ruptured ovarian cyst, torsion EKG interpreted by me (3pts min.). @ -not done X-rays interpreted by me (1pt min.). @ -not done CT interpreted by me (1pt min.). @ -None done U/S interpreted by me (1pt. min.). @ -no torsion, left sided cyst What testing was considered but not performed or refused? (CT, X-rays, U/S, labs)? Why? @ -None What meds were considered but not given or refused? Why? @ -None Did you discuss the management of the patient with other professionals (miriam latham i.e. , PA, FLEXOGRAPHIC PRESS SET UP OPERATOR, lab, RT, psych nurse, social services specialist, academic program specialist, teacher, project control officer, rifle case repairer)? Give summary @ -No Was smoking cessation discussed for >3mins.? @ -No Was critical care preformed (if so, how long)? @ -No Were there social determinants of health that impacted care today? How? (Homelessness, low income, unemployed, alcoholism, drug addiction, transportati on, low edu. Level, literacy, decrease access to med. care, assisted, rehab)? @ -No Was there de-escalation of care discussed even if they declined (Discuss DNR or withdrawal of care, Hospice)? DNR status @ -No What co-morbidities impacted this encounter? (DM, HTN, Smoking, COPD, CAD, Cancer, CVA, ARF, Chemo, Hep., AIDS, mental health diagnosis, sleep apnea, morbid obesity)? @ -dermoid cyst - known Was patient admitted / discharged? Hospital course, mention meds given and route, prescriptions, significant lab abnormalities, going to OR and other pertinent info. @ -Upon arrival patient was placed into room 21. A thorough history and physical exam was performed. IV is established and laboratory studies are conducted. Ultrasound is performed. Laboratory studies are within normal limits. Transvaginal ultrasound demonstrates a left-sided dermoid cyst. There is an IUD within the uterus. Normal blood flow to both ovaries. Patient was given a dose of morphine for pain control reevaluated. Reports that her pain is markedly improved. Discussed the diagnosis, differential and treatment options. Patient feels comfortable going home at this time. She will be given a Tylenol 3 starter pack. Instructed to take the medication only for significant pain. Follow up with the ELECTRONIC MAINTENANCE SUPERVISOR. Return should her pain be uncontrolled. Patient was agreeable to this plan and she was discharged in stable condition Undiagnosed new problem with uncertain prognosis? @ -yes Drug Therapy requiring intensive monitoring for toxicity (Heparin, Nitro, Insulin, Cardizem)? @ -No Were any procedures done? @ -No Diagnosis/symptom? @ -acute bilateral lower pelvic pain, left sided dermoid cyst Acute, or Chronic, or Acute on Chronic? @ -acute Uncomplicated (without systemic symptoms) or Complicated (systemic symptoms)? @ -uncomplicated Side effects of treatment? @ -No Exacerbation, Progression, or Severe Exacerbation? @ -No Poses a threat to life or bodily function? How? (Chest pain, [place], [place], pneumonia, PE, COPD, DKA, ARF, appy, cholecystitis, CVA, Diverticulitis, Homicidal, Suicidal, threat to staff... and all critical care pts) @ -No - Lab Data Result diagrams: 08/24/22 00:16 08/24/22 00:16 Lab Results 08/24/22 08/24/22 08/24/22 Range/Units 00:16 00:16 00:16 WBC 10.7 (4.0-11.0) k/uL RBC 5.32 (3.80-5.40) m/uL Hgb 13.1 (11.4-16.0) gm/dL Hct 41.6 (34.0-46.0) % MCV 78.3 L (80.0-100.0) fL MCH 24.6 L (25.0-35.0) pg MCHC 31.4 (31.0-37.0) g/dL RDW 15.7 H (11.5-15.5) % Plt Count 409 (150-450) k/uL MPV 7.2 Neutrophils % 71 % Lymphocytes % 20 % Monocytes % 6 % Eosinophils % 2 % Basophils % 0 % Neutrophils # 7.5 (1.3-7.7) k/uL Lymphocytes # 2.1 (1.0-4.8) k/uL Monocytes # 0.6 (0-1.0) k/uL Eosinophils # 0.2 (0-0.7) k/uL Basophils # 0.0 (0-0.2) k/uL Microcytosis Slight Sodium (137-145) mmol/L Potassium (3.5-5.1) mmol/L Chloride (98-107) mmol/L Carbon Dioxide (22-30) mmol/L Anion Gap mmol/L BUN (7-17) mg/dL Creatinine (0.52-1.04) mg/dL Est GFR (CKD-EPI)AfAm (>60 ml/min/1.73 sqM) Est GFR (CKD-EPI)NonAf (>60 ml/min/1.73 sqM) Glucose (74-99) mg/dL Calcium (8.4-10.2) mg/dL Total Bilirubin (0.2-1.3) mg/dL AST (14-36) U/L ALT (4-34) U/L Alkaline Phosphatase (38-126) U/L Total Protein (6.3-8.2) g/dL Albumin (3.5-5.0) g/dL Urine Color Yellow Urine Appearance Cloudy H (Clear) Urine pH 6.5 (5.0-8.0) Ur Specific [place] 1.027 (1.001-1.035) Urine Protein Trace H (Negative) Urine Glucose (UA) Negative (Negative) Urine Ketones Negative (Negative) Urine Blood Negative (Negative) Urine Nitrite Negative (Negative) Urine Bilirubin Negative (Negative) Urine Urobilinogen 2.0 (<2.0) mg/dL Ur Leukocyte Esterase Small H (Negative) Urine RBC 4 (0-5) /hpf Urine WBC 3 (0-5) /hpf Ur Squamous Epith Cells 18 H (0-4) /hpf Calcium Oxalate Crystal Many H (None) /hpf Urine Bacteria Rare H (None) /hpf Urine Mucus Occasional H (None) /hpf Urine HCG, Qual Not Detected (Not Detectd) 08/24/22 Range/Units 00:16 WBC (4.0-11.0) k/uL RBC (3.80-5.40) m/uL Hgb (11.4-16.0) gm/dL Hct (34.0-46.0) % MCV (80.0-100.0) fL MCH (25.0-35.0) pg MCHC (31.0-37.0) g/dL RDW (11.5-15.5) % Plt Count (150-450) k/uL MPV Neutrophils % % Lymphocytes % % Monocytes % % Eosinophils % % Basophils % % Neutrophils # (1.3-7.7) k/uL Lymphocytes # (1.0-4.8) k/uL Monocytes # (0-1.0) k/uL Eosinophils # (0-0.7) k/uL Basophils # (0-0.2) k/uL Microcytosis Sodium 140 (137-145) mmol/L Potassium 3.7 (3.5-5.1) mmol/L Chloride 105 (98-107) mmol/L Carbon Dioxide 25 (22-30) mmol/L Anion Gap 10 mmol/L BUN 7 (7-17) mg/dL Creatinine 0.76 (0.52-1.04) mg/dL Est GFR (CKD-EPI)AfAm >90 (>60 ml/min/1.73 sqM) Est GFR (CKD-EPI)NonAf >90 (>60 ml/min/1.73 sqM) Glucose 107 H (74-99) mg/dL Calcium 9.5 (8.4-10.2) mg/dL Total Bilirubin 0.3 (0.2-1.3) mg/dL AST 30 (14-36) U/L ALT 72 H (4-34) U/L Alkaline Phosphatase 77 (38-126) U/L Total Protein 7.5 (6.3-8.2) g/dL Albumin 4.3 (3.5-5.0) g/dL Urine Color Urine Appearance (Clear) Urine pH (5.0-8.0) Ur Specific [place] (1.001-1.035) Urine Protein (Negative) Urine Glucose (UA) (Negative) Urine Ketones (Negative) Urine Blood (Negative) Urine Nitrite (Negative) Urine Bilirubin (Negative) Urine Urobilinogen (<2.0) mg/dL Ur Leukocyte Esterase (Negative) Urine RBC (0-5) /hpf Urine WBC (0-5) /hpf Ur Squamous Epith Cells (0-4) /hpf Calcium Oxalate Crystal (None) /hpf Urine Bacteria (None) /hpf Urine Mucus (None) /hpf Urine HCG, Qual (Not Detectd) Disposition Clinical Impression: Pelvic pain, Dermoid cyst Disposition: HOME SELF-CARE Condition: Stable Instructions (If sedation given, give patient instructions): Pelvic Pain (ED) Additional Instructions: Please follow-up with the ELECTRONIC MAINTENANCE SUPERVISOR in regards to your pain. Return for any new or worsening symptoms Is patient prescribed a controlled substance at d/c from ED?: No Referrals: Jaswinder Ceballos DO [Primary Care Provider] - 1-2 days Time of Disposition: 03:14
[2022-08-24 03:24] VITALS: BP 109/63; PULSE 78
== END 2022-08-24 03:23 | disposition home or self-care (01) ==
LOC: EC 22:47
DX: R10.2 Pelvic and perineal pain (principal); D36.9 Benign neoplasm, unspecified site; F41.9 Anxiety disorder, unspecified; F32.A Depression, unspecified; Z79.899 Other long term (current) drug therapy; Z91.041 Radiographic dye allergy status
CPT/HCPCS: 99284; 96374; 36415; 80053; 85025; 81001; 81025; 93975; 76830; J2270

== ENCOUNTER 2022-08-27 20:36 | Emergency (ER) | payer BC ==
[2022-08-27 20:41] VITALS: TEMP 98.3
[2022-08-27] MEDS ORDERED: MORPHINE SULFATE 4 MG/ML SYRINGE IM STA (22:55)
[2022-08-28 00:17] LABS: Appearance,Urine Cloudy (Clear); Bacteria,Urine Few /hpf; Bilirubin,Urine Negative (Negative); Blood,Urine Negative (Negative); Calcium Oxalate Crystals,Urine Moderate /hpf; Color,Urine Yellow; Glucose,Urine (UA) Negative (Negative); Hyaline Casts,Urine 40 /lpf (0-2); Ketones,Urine Trace (Negative); Leukocyte Esterase,Urine Moderate (Negative); Mucus,Urine Many /hpf; Nitrite,Urine Negative (Negative); PH, Urine 5.5 (5.0-8.0); Protein,Urine 1+ (Negative); RBC,Urine 3 /hpf (0-5); Specific Gravity,Urine 1.043 (1.001-1.035); Squamous Epithelial Cell,Urine 39 /hpf (0-4); WBC,Urine 7 /hpf (0-5)
[2022-08-28 01:20] LABS: Basophils % (A) 0 %; Eosinophils # (A) 0.2 k/uL (0-0.7); Eosinophils % (A) 2 %; HCT 39.8 % (34.0-46.0); HGB 12.6 gm/dL (11.4-16.0); Hypochromasia Slight; Lymphocytes # (A) 2.6 k/uL (1.0-4.8); Lymphocytes % (A) 28 %; MCH 25.1 pg (25.0-35.0); MCHC 31.6 g/dL (31.0-37.0); MCV 79.5 fL (80.0-100.0); Mean Platelet Volume 7.1; Monocytes # (A) 0.5 k/uL (0-1.0); Monocytes % (A) 5 %; Neutrophils # (A) 5.7 k/uL (1.3-7.7); Neutrophils % (A) 63 %; Platelet Count 387 k/uL (150-450); RBC 5.01 m/uL (3.80-5.40); RDW 15.7 % (11.5-15.5); WBC 9.2 k/uL (4.0-11.0)
[2022-08-28 01:32] LABS: ALT 65 U/L (4-34); AST 32 U/L (14-36); African American GFR (CKD) >90 (>60 ml/min/1.73 sqM); Alkaline Phosphatase 71 U/L (38-126); Anion Gap 9 mmol/L; Blood Urea Nitrogen 9 mg/dL (7-17); Calcium 9.3 mg/dL (8.4-10.2); Carbon Dioxide 25 mmol/L (22-30); Chloride 106 mmol/L (98-107); Glucose 85 mg/dL (74-99); Non-African American GFR(CKD) >90 (>60 ml/min/1.73 sqM); Potassium 4.3 mmol/L (3.5-5.1); Sodium 140 mmol/L (137-145); Total Bilirubin 0.3 mg/dL (0.2-1.3); Total Protein 6.9 g/dL (6.3-8.2)
[2022-08-28 01:43] VITALS: BP 108/69; PULSE 67; RESP 18
--- NOTE | 2022-08-28 01:57 | US ---
EXAM: US Pelvis Transvaginal CLINICAL HISTORY: ITS.REASON US Reason: L sided pelvic pain TECHNIQUE: Real-time transvaginal pelvic ultrasound with image documentation. Transvaginal imaging was used for better evaluation of the endometrium and adnexa. COMPARISON: 02/22/2022 FINDINGS: Uterus/cervix: No myometrial mass. Normal endometrial thickness. Right ovary: 3.3 cm. No mass. Normal blood flow. Left ovary: 4.4 cm. 2.5 cm homogeneously echogenic mass is identified. Normal blood flow. Free fluid: No free fluid. IMPRESSION: No acute findings. Left ovarian dermoid cyst again seen.
--- NOTE | 2022-08-28 02:05 | ED ---
Abdominal Pain HPI - General Chief Complaint: Abdominal Pain Stated Complaint: ovarian cyst Time Seen by Provider: 08/27/22 22:49 Source: patient Mode of arrival: ambulatory Limitations: no limitations - History of Present Illness Initial Comments: 21-year-old female presenting with chief complaint of abdominal pain. Patient is experiencing left sided pelvic pain. She was seen here Sunday for similar complaints and was found to have a left-sided ovarian cyst. Patient states that the pain has since come back. She is taking Tylenol 3 at home. She has an appointment with MANAGER WIND on Sunday. Patient is having pain radiating down the legs as well. Admits to nausea with no vomiting. No fevers or chills. No vaginal bleeding or discharge. - Related Data Home Medications Medication Instructions Recorded Confirmed Dicyclomine [Bentyl] 20 mg PO QID 02/22/22 04/05/22 Famotidine [Pepcid] 20 mg PO BID 02/22/22 04/05/22 Prochlorperazine [Compazine] 5 mg PO BID 02/22/22 04/05/22 Allergies Allergy/AdvReac Type Severity Reaction Status Date / Time Iodinated Contrast Media AdvReac Family Verified 08/23/22 22:52 history Review of Systems ROS Statement: Those systems with pertinent positive or pertinent negative responses have been documented in the HPI. ROS Other: All systems not noted in ROS Statement are negative. Past Medical History Past Medical History: GERD/Reflux Additional Past Medical History / Comment(s): FX LEFT CLAVICLE (FELL OFF GOLF CART ON 11/23/16). MOTHER STATES PATIENT HAS HAD PERIODIC UPPER ABDOMINAL PAIN, N/V/D History of Any Multi-Drug Resistant Organisms: None Reported Past Surgical History: Orthopedic Surgery Additional Past Surgical History / Comment(s): LT CLAVICLE SX Past Anesthesia/Blood Transfusion Reactions: Motion Sickness, Postoperative Nausea & Vomiting (PONV) Additional Past Anesthesia/Blood Transfusion Reaction / Comment(s): NEVER HAD ANESTHESIA. Past Psychological History: Anxiety, Depression Smoking Status: Never smoker Past Alcohol Use History: None Reported Past Drug Use History: Marijuana - Past Family History Mother Family Medical History: No Reported History General Exam Limitations: no limitations General appearance: alert, in no apparent distress Head exam: Present: atraumatic, normocephalic, normal inspection Eye exam: Present: normal appearance, EOMI. Absent: scleral icterus, periorbital swelling Neck exam: Present: normal inspection, full ROM Respiratory exam: Present: normal lung sounds bilaterally. Absent: respiratory distress, wheezes, rales, rhonchi, stridor Cardiovascular Exam: Present: regular rate, normal rhythm, normal heart sounds. Absent: systolic murmur, diastolic murmur, rubs, gallop, clicks GI/Abdominal exam: Present: soft, tenderness. Absent: distended, guarding, rebound, rigid Neurological exam: Present: alert, oriented X3, CN II-XII intact Psychiatric exam: Present: normal affect, normal mood Skin exam: Present: warm, dry, intact, normal color. Absent: rash Course Vital Signs 08/27/22 08/28/22 20:37 01:43 Temperature 98.3 F Pulse Rate 105 H 67 Respiratory 16 18 Rate Blood Pressure 138/78 108/69 O2 Sat by Pulse 97 97 Oximetry Medical Decision Making - Medical Decision Making Was pt. sent in by a medical professional or institution (, PA, CORPORATE QUALITY MANAGER, urgent care, hospital, or [place] health care facility...) When possible be specific @ -No Did you speak to anyone other than the patient for history (EMS, parent, family, police, friend...)? What history was obtained from this source @ -No Did you review nursing and triage notes (agree or disagree)? Why? @ -Reviewed and agree Were old charts reviewed (outside hosp., previous admission, EMS record, old EKG, old radiological studies, urgent care reports/EKG's, [place] health [place] facility records)? Report findings @ -Previous ultrasound reviewed Differential Diagnosis (chest pain, altered mental status, abdominal pain women, abdominal pain men, vaginal bleeding, weakness, fever, dyspnea, syncope, headache, dizziness, GI bleed, back pain, seizure, CVA, palpatations, mental health, musculoskeletal)? @ -[facility] Differential Abdominal Pain Women: Appendicitis, Cholecystitis, diverticulosis, ischemic bowel, pancreatitis, hepatitis, UTI, gastroenteritis, AAA, incarcerated hernia, bowel obstruction, constipation, inflammatory bowel, hepatitis, peptic ulcer disease, splenic infarction, perforated viscus, vulvitis, ovarian torsion, PID, kidney stone, placenta abruption... This is not meant to be an all-inclusive list EKG interpreted by me (3pts min.). @ -As above X-rays interpreted by me (1pt min.). @ -None done CT interpreted by me (1pt min.). @ -None done U/S interpreted by me (1pt. min.). @ -None done What testing was considered but not performed or refused? (CT, X-rays, U/S, labs)? Why? @ -None What meds were considered but not given or refused? Why? @ -None Did you discuss the management of the patient with other professionals (professionals i.e. , PA, CORPORATE QUALITY MANAGER, lab, RT, psych nurse, perinatal social worker, aviation support equipment repairer, teacher, special police officer, spring encaser)? Give summary @ -No Was smoking cessation discussed for >3mins.? @ -No Was critical care preformed (if so, how long)? @ -No Were there social determinants of health that impacted care today? How? (Homelessness, low income, unemployed, alcoholism, drug addiction, transportation, low edu. Level, literacy, decrease access to med. care, half-way, rehab)? @ -No Was there de-escalation of care discussed even if they declined (Discuss DNR or withdrawal of care, Hospice)? DNR status @ -No What co-morbidities impacted this encounter? (DM, HTN, Smoking, COPD, CAD, Cancer, CVA, ARF, Chemo, Hep., AIDS, mental health diagnosis, sleep apnea, morb id obesity)? @ -None Was patient admitted / discharged? Hospital course, mention meds given and route, prescriptions, significant lab abnormalities, going to OR and other pertinent info. @ -21-year-old female presenting with chief complaint of left-sided pelvic pain. History of dermoid cyst. Monitor shows no leukocytosis or anemia. Urine shows signs of contamination. HCG is negative. Ultrasound shows pre-existing cyst with no acute process. Patient educated on today's findings. She will follow up with OB at her scheduled appointment on Sunday. Follow-up with PCP. Report back to ER with any new or worsening symptoms. Discussed return parameters and answered all questions. Patient conveyed verbal understanding and agreed to the plan. I discussed this case in detail with my attending Dr. Galarza Undiagnosed new problem with uncertain prognosis? @ -No Drug Therapy requiring intensive monitoring for toxicity (Heparin, Nitro, Insulin, Cardizem)? @ -No Were any procedures done? @ -No Diagnosis/symptom? @ -Dermoid cyst Acute, or Chronic, or Acute on Chronic? @ -chronic Uncomplicated (without systemic symptoms) or Complicated (systemic symptoms)? @ -Uncomplicated Side effects of treatment? @ -No Exacerbation, Progression, or Severe Exacerbation? @ -No Poses a threat to life or bodily function? How? (Chest pain, [place], [place], pneumonia, PE, COPD, DKA, ARF, appy, cholecystitis, CVA, Diverticulitis, Homicidal, Suicidal, threat to staff... and all critical care pts) @ -No - Lab Data Result diagrams: 08/28/22 00:57 08/28/22 00:57 Lab Results 08/27/22 08/27/22 08/28/22 Range/Units 23:39 23:39 00:57 WBC 9.2 (4.0-11.0) k/uL RBC 5.01 (3.80-5.40) m/uL Hgb 12.6 (11.4-16.0) gm/dL Hct 39.8 (34.0-46.0) % MCV 79.5 L (80.0-100.0) fL MCH 25.1 (25.0-35.0) pg MCHC 31.6 (31.0-37.0) g/dL RDW 15.7 H (11.5-15.5) % Plt Count 387 (150-450) k/uL MPV 7.1 Neutrophils % 63 % Lymphocytes % 28 % Monocytes % 5 % Eosinophils % 2 % Basophils % 0 % Neutrophils # 5.7 (1.3-7.7) k/uL Lymphocytes # 2.6 (1.0-4.8) k/uL Monocytes # 0.5 (0-1.0) k/uL Eosinophils # 0.2 (0-0.7) k/uL Basophils # 0.0 (0-0.2) k/uL Hypochromasia Slight Sodium (137-145) mmol/L Potassium (3.5-5.1) mmol/L Chloride (98-107) mmol/L Carbon Dioxide (22-30) mmol/L Anion Gap mmol/L BUN (7-17) mg/dL Creatinine (0.52-1.04) mg/dL Est GFR (CKD-EPI)AfAm (>60 ml/min/1.73 sqM) Est GFR (CKD-EPI)NonAf (>60 ml/min/1.73 sqM) Glucose (74-99) mg/dL Calcium (8.4-10.2) mg/dL Total Bilirubin (0.2-1.3) mg/dL AST (14-36) U/L ALT (4-34) U/L Alkaline Phosphatase (38-126) U/L Total Protein (6.3-8.2) g/dL Albumin (3.5-5.0) g/dL Urine Color Yellow Urine Appearance Cloudy H (Clear) Urine pH 5.5 (5.0-8.0) Ur Specific [place] 1.043 H (1.001-1.035) Urine Protein 1+ H (Negative) Urine Glucose (UA) Negative (Negative) Urine Ketones Trace H (Negative) Urine Blood Negative (Negative) Urine Nitrite Negative (Negative) Urine Bilirubin Negative (Negative) Urine Urobilinogen 2.0 (<2.0) mg/dL Ur Leukocyte Esterase Moderate H (Negative) Urine RBC 3 (0-5) /hpf Urine WBC 7 H (0-5) /hpf Ur Squamous Epith Cells 39 H (0-4) /hpf Calcium Oxalate Crystal Moderate H (None) /hpf Urine Bacteria Few H (None) /hpf Hyaline Casts 40 H (0-2) /lpf Urine Mucus Many H (None) /hpf Urine HCG, Qual Not Detected (Not Detectd) 08/28/22 Range/Units 00:57 WBC (4.0-11.0) k/uL RBC (3.80-5.40) m/uL Hgb (11.4-16.0) gm/dL Hct (34.0-46.0) % MCV (80.0-100.0) fL MCH (25.0-35.0) pg MCHC (31.0-37.0) g/dL RDW (11.5-15.5) % Plt Count (150-450) k/uL MPV Neutrophils % % Lymphocytes % % Monocytes % % Eosinophils % % Basophils % % Neutrophils # (1.3-7.7) k/uL Lymphocytes # (1.0-4.8) k/uL Monocytes # (0-1.0) k/uL Eosinophils # (0-0.7) k/uL Basophils # (0-0.2) k/uL Hypochromasia Sodium 140 (137-145) mmol/L Potassium 4.3 (3.5-5.1) mmol/L Chloride 106 (98-107) mmol/L Carbon Dioxide 25 (22-30) mmol/L Anion Gap 9 mmol/L BUN 9 (7-17) mg/dL Creatinine 0.78 (0.52-1.04) mg/dL Est GFR (CKD-EPI)AfAm >90 (>60 ml/min/1.73 sqM) Est GFR (CKD-EPI)NonAf >90 (>60 ml/min/1.73 sqM) Glucose 85 (74-99) mg/dL Calcium 9.3 (8.4-10.2) mg/dL Total Bilirubin 0.3 (0.2-1.3) mg/dL AST 32 (14-36) U/L ALT 65 H (4-34) U/L Alkaline Phosphatase 71 (38-126) U/L Total Protein 6.9 (6.3-8.2) g/dL Albumin 4.0 (3.5-5.0) g/dL Urine Color Urine Appearance (Clear) Urine pH (5.0-8.0) Ur Specific [place] (1.001-1.035) Urine Protein (Negative) Urine Glucose (UA) (Negative) Urine Ketones (Negative) Urine Blood (Negative) Urine Nitrite (Negative) Urine Bilirubin (Negative) Urine Urobilinogen (<2.0) mg/dL Ur Leukocyte Esterase (Negative) Urine RBC (0-5) /hpf Urine WBC (0-5) /hpf Ur Squamous Epith Cells (0-4) /hpf Calcium Oxalate Crystal (None) /hpf Urine Bacteria (None) /hpf Hyaline Casts (0-2) /lpf Urine Mucus (None) /hpf Urine HCG, Qual (Not Detectd) Disposition Clinical Impression: Dermoid cyst Disposition: HOME SELF-CARE Condition: Good Instructions (If sedation given, give patient instructions): Ovarian Cyst (ED) Additional Instructions: Follow-up with PCP and MANAGER WIND. Report back to ER with any new or worsening symptoms. Is patient prescribed a controlled substance at d/c from ED?: No Referrals: Jaswinder Ceballos DO [Primary Care Provider] - 1-2 days Norma Romero DO [Doctor of Osteopathic Medicine] - 1-2 days Time of Disposition: 02:05
== END 2022-08-28 02:41 | disposition home or self-care (01) ==
LOC: EC 20:36
DX: D36.9 Benign neoplasm, unspecified site (principal); F41.9 Anxiety disorder, unspecified; F32.A Depression, unspecified; F12.90 Cannabis use, unspecified, uncomplicated; Z79.899 Other long term (current) drug therapy; Z91.041 Radiographic dye allergy status
CPT/HCPCS: 99285; 96372; J2270; 36415; 76830; 80053; 81001; 81025; 85025; 93975

== ENCOUNTER → 2022-09-27 | Outpatient (CLI) | payer BC ==
--- NOTE | 2022-09-27 14:54 | XR ---
EXAMINATION TYPE: XR lumbar spine 2 or 3V DATE OF EXAM: 09/27/2022 CLINICAL HISTORY: Low back pain TECHNIQUE: Three views of the lumbar spine are submitted. COMPARISON: CT abdomen pelvis 02/22/2022 FINDINGS: There are 5 lumbar type vertebral bodies identified. The lumbar spine shows satisfactory alignment w ithout evidence of acute fracture or dislocation. Vertebral body heights are within normal limits. Disc spaces are within normal limits. The overlying soft tissue appears unremarkable. IMPRESSION: No acute fracture or dislocation is seen in the lumbar spine.
--- NOTE | 2022-09-28 08:05 | CT ---
EXAMINATION TYPE: CT abdomen pelvis w con DATE OF EXAM: 09/27/2022 COMPARISON: 02/22/2022 HISTORY: Generalized abd pain. hx of left ovarian cyst CT DLP: 909 mGycm CONTRAST: CT scan of the abdomen and pelvis is performed with Oral Contrast and with IV Contrast, patient injec anup with 100ml mL of Isovue 300. FINDINGS: LUNG BASES-: No visible nodule. No infiltrate. LIVER/GB: No calcified gallstones. Borderline Hepatomegaly and underlying hepatic steatosis. No sp kumar occupying hepatic lesion. Biliary tree is of normal caliber. PANCREAS: No inflammation. No distinct mass. SPLEEN: No splenic enlargement. No lesion seen. ADRENALS: No nodule. No thickening. KIDNEYS/BLADDER: No hydronephrosis. No nephrolithiasis. No distinct renal mass. Urinary bladder g rossly unremarkable. BOWEL: Normal appendix. Normal bowel caliber. No inflammation. GENITAL ORGANS: Fat-containing lesion left ovary is redemonstrated and currently measures 3 cm versu s 2.6 cm previously. The right ovary is unremarkable. IUD is seen within the uterus. LYMPH NODES: No greater than 1cm abdominal or pelvic lymph nodes are appreciated. AORTA: No significant abnormality. OSSEOUS STRUCTURES: No significant abnormality is seen. OTHER: No significant additional abnormality is seen. IMPRESSION: 1. Slight enlargement and left ovarian dermoid lesion. 2. Borderline hepatomegaly with underlying hepatic steatosis. Correlate with liver function testing.
== END | disposition home or self-care (01) ==
LOC: RADCTMAIN 14:17
PROVIDERS: ATTEND Family Medicine
DX: N83.8 Other noninflammatory disorders of ovary, fallopian tube and broad ligament (principal); K76.0 Fatty (change of) liver, not elsewhere classified; R16.0 Hepatomegaly, not elsewhere classified; M54.50 Low back pain, unspecified
CPT/HCPCS: 72100; 74177; Q9967

== ENCOUNTER → 2022-10-05 | Day surgery (SDC) | payer BC ==
--- NOTE | 2022-10-04 16:19 | P.HPOB ---
History of Present Illness H&P Date: 10/04/22 Chief Complaint: dermoid cyst 22 year old G0 presents for laparoscopic removal of left dermoid cyst using da samia, possible left oopherectomy, possible laparotomy. Review of Systems All systems: negative Constitutional: Denies chills, Denies fever Eyes: denies blurred vision, denies pain Ears, nose, mouth and throat: Denies headache, Denies sore throat Cardiovascular: Denies chest pain, Denies shortness of breath Respiratory: Denies cough Gastrointestinal: Denies abdominal pain, Denies diarrhea, Denies nausea, Denies vomiting Genitourinary: Denies dysuria, Denies hematuria Musculoskeletal: Denies myalgias Integumentary: Denies pruritus, Denies rash Neurological: Denies numbness, Denies weakness Psychiatric: Denies anxiety, Denies depression Endocrine: Denies fatigue, Denies weight change Past Medical History Past Medical History: GERD/Reflux Additional Past Medical History / Comment(s): FX LEFT CLAVICLE (FELL OFF GOLF CART ON 11/23/16). MOTHER STATES PATIENT HAS HAD PERIODIC UPPER ABDOMINAL PAIN, N/V/D History of Any Multi-Drug Resistant Organisms: None Reported Past Surgical History: Orthopedic Surgery Additional Past Surgical History / Comment(s): LT CLAVICLE SX, upper and lower scopes, Past Anesthesia/Blood Transfusion Reactions: Motion Sickness, Postoperative Nausea & Vomiting (PONV) Additional Past Anesthesia/Blood Transfusion Reaction / Comment(s): NEVER HAD ANESTHESIA. Smoking Status: Current every day smoker - Past Family History Mother Family Medical History: No Reported History Medications and Allergies Home Medications Medication Instructions Recorded Confirmed Type Dicyclomine [Bentyl] 40 mg PO QID 02/22/22 09/29/22 History Famotidine [Pepcid] 20 mg PO BID 02/22/22 09/29/22 History Prochlorperazine [Compazine] 5 mg PO BID 02/22/22 09/29/22 History Indomethacin [Indocin] 50 mg PO TID PRN 09/29/22 09/29/22 History buPROPion HCL [buPROPion HCL SR] 200 mg PO BID 09/29/22 09/29/22 History Allergies Allergy/AdvReac Type Severity Reaction Status Date / Time No Known Allergies Allergy Verified 10/04/22 14:16 Exam Osteopathic Statement: *. No significant issues noted on an osteopathic structural exam other than those noted in the History and Physical/Consult. HEart: RRR Lung: CTAB abdomen: soft, nontender Extremeties: neg philippe's Assessment and Plan (1) Dermoid cyst Status: Acute Code(s): D36.9 - BENIGN NEOPLASM, UNSPECIFIED SITE SNOMED Code(s): 730975561 Plan: 1. laparoscopic removal of left dermoid cyst, possible left oopherectomy, possible laparotomy
[~2022-10-05] MED LIST changes: +BUPIVACAINE (PF) 0.25% 30 ML VIAL SQ ONE; -DEXAMETHASONE SOD PHOSPHATE 10 MG/ML 1 ML VIAL IV ONE; +DEXAMETHASONE SOD PHOSPHATE 4 MG/ML 1 ML VIAL IV ONE; +GLYCOPYRROLATE 0.2 MG/ML 2 ML VIAL ONE; +HYDROmorphone (PF) 1 MG/ML ONE; +HYDROmorphone 0.5 MG/0.5 ML SYRINGE IVP PRN; +KETOROLAC 15 MG/ML 1 ML VIAL ONE; +LACTATED RINGERS 1,000 ML IV ONE; +LIDOCAINE 2% INJ 20 MG/ML (2 ML VIAL) ONE; -MIDAZOLAM 2 MG/2 ML VIAL IV PRN; +MIDAZOLAM 2 MG/2 ML VIAL ONE; +NEOSTIGMINE 1 MG/ML 10 ML VIAL ONE; +PROPOFOL 10 MG/ML 20 ML VIAL IV ONE; +Pre Op ABX Message 1 EACH MISC MISCELLANE ONE; +ROCURONIUM 10 MG/ML (5 ML VIAL) IV ONE; +SUCCINYLCHOLINE CHLORIDE 200 MG/10 ML VIAL IV ONE; -ceFAZolin 2 GM in SODIUM CHLORIDE 0.9% 100 ML IVPB ONE; +fentaNYL (PF) 50 MCG/ML 2 ML AMP ONE
--- NOTE | 2022-10-05 10:58 | P.OP ---
Date of Procedure: 10/05/22 Preoperative Diagnosis: 1. left dermoid cyst Postoperative Diagnosis: 1. left dermoid cyst Procedure(s) Performed: laparoscopic removal of left dermoid cyst using da quinton Anesthesia: KLEBER Surgeon: Christy Garcia Estimated Blood Loss (ml): 3 IV fluids (ml): 700 Urine output (ml): 30 Pathology: other (dermoid cyst) Condition: stable Disposition: PACU Operative Findings: small dermoid cyst in the left ovary. IUD in place. Description of Procedure: Patient taken the operating room where general anesthesia was obtained without difficulty. She is prepped and draped in normal sterile fashion dorsal l ithotomy position, legs placed in the Jayden stirrups. Weighted speculum placed in the vagina and the anterior lip the cervix was grasped with single-tooth tenaculum. [place] manipulator was placed area bladder was drained of all urine. Attention was then turned to the abdomen and gloves were changed. A 5 mm supraumbilical incision was made the scalpel and a 5 mm optical trocar was placed under direct visualization. 10 cm to the right of this and 2 cm down a 5 mm incision was made and 8 mm da Quinton port was placed under direct visualization. Same measurements on the opposite side of the patient's abdomen, the 5 mm incision was made and 8 mm da [place] port was placed under direct visualization. In the left upper quadrant a 10 mm incision was made and a 10 mm optical trocar was placed under direct visualization. The 5 mm optical trocar was then replaced with the 8 mm da Quinton camera port. The robot was docked on patient's left side. The camera was introduced and then the monopolar curved scissor and [place] bipolar placed under direct visualization. I broke scrub and went to the physician console. Survey of the pelvis revealed an enlarged left ovary, normal uterus and normal fallopian tubes and normal but elongated right ovary. Scissors were used to make a small incision in the posterior aspect of the left ovary. The cyst was identified within the ovary and shelled out. It did break open well was being shelled out and some sebaceous fluid was noted. The cyst was placed and a #5 Endo Catch bag and removed. The assistant men's lacrosse coach port. An 0 Vicryl was used to close the ovary in a running fashion. Pelvis was irrigated. Hemostasis was assured and the pelvis was irrigated. All instruments were removed from the abdomen and the robot was undocked. The abdominal incisions were closed with 4-0 Vicryl in a subcuticular fashion. Patient tolerated the procedure well, sponge and instrument counts correct 2 and she was taken to recovery room in stable condition condition
[2022-10-05 11:13] VITALS: TEMP 97
[2022-10-05] MEDS: MEPERIDINE 50 MG/ML SYRINGE IVP ONE ×2 (11:27→11:37)
[2022-10-05 12:23] VITALS: BP 107/71; PULSE 60; RESP 14
== END | disposition home or self-care (01) ==
LOC: OR 07:37
PROVIDERS: ATTEND Obstetrics & Gynecology
DX: D27.1 Benign neoplasm of left ovary (principal); K21.9 Gastro-esophageal reflux disease without esophagitis; F17.200 Nicotine dependence, unspecified, uncomplicated; Z98.890 Other specified postprocedural states; Z79.899 Other long term (current) drug therapy
CPT/HCPCS: 81025; 88307; 58661; J2250; J0330; J1100; J2710; J2175; J2405; J3010; J1170 ×2; J1885; J2704; J2001; J0665

== ENCOUNTER → 2023-07-16 | Outpatient (CLI) | payer BC ==
--- NOTE | 2023-07-16 08:11 | US ---
EXAMINATION TYPE: US gallbladder DATE OF EXAM: 07/16/2023 COMPARISON: CT CLINICAL INDICATION: Female, 22 years old with history of R10.11 RIGHT UPPER QUADRANT PAIN; Pt states RUQ pain, especially after eating x 4months TECHNIQUE: Multiple sonographic images of the right upper quadrant are obtained. 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 No evidence for acute process. 2. Cholelithiasis.
== END | disposition home or self-care (01) ==
LOC: RADUSWWP 07:10
PROVIDERS: ATTEND Surgery
DX: K80.20 Calculus of gallbladder without cholecystitis without obstruction (principal)
CPT/HCPCS: 76705

== ENCOUNTER 2023-08-13 10:34 | Day surgery (SDC) | payer BC ==
[~2023-08-13 10:34] MED LIST changes: -BUPIVACAINE (PF) 0.25% 30 ML VIAL SQ ONE; -DEXAMETHASONE SOD PHOSPHATE 4 MG/ML 1 ML VIAL IV ONE; -GLYCOPYRROLATE 0.2 MG/ML 2 ML VIAL ONE; -HYDROmorphone (PF) 1 MG/ML ONE; -HYDROmorphone 0.5 MG/0.5 ML SYRINGE IVP PRN; -KETOROLAC 15 MG/ML 1 ML VIAL ONE; -LACTATED RINGERS 1,000 ML IV ONE; -LACTATED RINGERS 1,000 ML IV SCH; +LIDOCAINE 1% (10MG/ML) FOR IV START INTRADERMA PRN; -LIDOCAINE 2% INJ 20 MG/ML (2 ML VIAL) ONE; -MIDAZOLAM 2 MG/2 ML VIAL ONE; -NEOSTIGMINE 1 MG/ML 10 ML VIAL ONE; -ONDANSETRON 4 MG/2 ML VIAL IVP ONE; -PROPOFOL 10 MG/ML 20 ML VIAL IV ONE; -Pre Op ABX Message 1 EACH MISC MISCELLANE ONE; -ROCURONIUM 10 MG/ML (5 ML VIAL) IV ONE; -SUCCINYLCHOLINE CHLORIDE 200 MG/10 ML VIAL IV ONE; -fentaNYL (PF) 50 MCG/ML 2 ML AMP ONE
--- NOTE | 2023-08-13 10:57 | P.GSHP ---
History of Present Illness H&P Date: 08/13/23 Chief Complaint: Chronic cholecystitis 22-year-old female here today for elective laparoscopic cholecystectomy. Patient initially was seen in the office complaining of primarily left lower quadrant abdominal pain. Patient has had a workup there without any obvious abnormalities noted. During the office visit she also describes some recent attacks of right upper quadrant discomfort that radiated to the back. Recent ultrasound performed showing gallstones. Patient says her symptoms have increased in the right upper quadrant. We have decided to proceed with cholecystectomy today. Past Medical History Past Medical History: GERD/Reflux Additional Past Medical History / Comment(s): ABN PAIN. IBS. FX LEFT CLAVICLE (FELL OFF GOLF CART ON 11/23/16). History of Any Multi-Drug Resistant Organisms: None Reported Past Surgical History: Orthopedic Surgery Additional Past Surgical History / Comment(s): LT CLAVICLE SX- HARDWARE Past Anesthesia/Blood Transfusion Reactions: Motion Sickness, Postoperative Nausea & Vomiting (PONV) Additional Past Anesthesia/Blood Transfusion Reaction / Comment(s): NEVER HAD ANESTHESIA. Past Psychological History: Anxiety, Depression Smoking Status: Never smoker Past Alcohol Use History: None Reported Past Drug Use History: Marijuana Additional Drug Use History / Comment(s): INSTRUCTED TO REFRAIN FROM USE FOR AT LEAST 24 HOURS PRIOR TO PROCEDURE - Past Family History Mother Family Medical History: No Reported History Medications and Allergies Home Medications Medication Instructions Recorded Confirmed Type Dicyclomine [Bentyl] 20 mg PO BID PRN 02/22/22 08/09/23 History Famotidine [Pepcid] 20 mg PO DAILY PRN 02/22/22 08/09/23 History Ibuprofen [Motrin] 600 mg PO Q6HR PRN #30 tab 10/05/22 08/09/23 Rx Allergies Allergy/AdvReac Type Severity Reaction Status Date / Time No Known Allergies Allergy Verified 08/13/23 10:44 Surgical - Exam Physical exam: General: Well-developed, well-nourished HEENT: Normocephalic, sclerae nonicteric Abdomen: Nontender, nondistended Extremities: No edema Neuro: Alert and oriented Assessment and Plan (1) Chronic cholecystitis Narrative/Plan: 22-year-old female with chronic cholecystitis. Will proceed with laparoscopic cholecystectomy, possible open. Risks of bleeding, infection, bile leak, bile duct injury, retained common bile duct stone, trocar injury, conversion to an open procedure, hernia, anesthesia related complications were reviewed. The patient understands and wishes to proceed. Current Visit: Yes Status: Acute Code(s): K81.1 - CHRONIC CHOLECYSTITIS SNOMED Code(s): 57987284
[2023-08-13] MEDS: LACTATED RINGERS 1,000 ML IV SCH (11:13)
[2023-08-13] MEDS: ONDANSETRON 4 MG/2 ML VIAL IVP ONE (11:13)
[2023-08-13] MEDS: DEXAMETHASONE SOD PHOSPHATE 4 MG/ML 1 ML VIAL IVP STA (11:14)
[2023-08-13] MEDS: FAMOTIDINE 20 MG/2 ML VIAL IV STA (11:14)
[2023-08-13] MEDS: ACETAMINOPHEN TAB 500 MG TAB PO PRN (11:18)
[2023-08-13] MEDS: IV FLUID CONTINUATION 1,000 ML IV ONE (11:20)
[2023-08-13] MEDS: HEPARIN SODIUM,PORCINE 5,000 UNIT/ML 1 ML VIAL SQ PRN (11:32)
[2023-08-13] MEDS ORDERED: SUCCINYLCHOLINE CHLORIDE 200 MG/10 ML VIAL IV ONE (12:01)
[2023-08-13] MEDS ORDERED: fentaNYL (PF) 50 MCG/ML 2 ML AMP ONE (12:01)
[2023-08-13] MEDS ORDERED: HYDROmorphone (PF) 1 MG/ML ONE (12:01)
[2023-08-13] MEDS ORDERED: GLYCOPYRROLATE 0.2 MG/ML 2 ML VIAL ONE (12:01)
[2023-08-13] MEDS ORDERED: PROPOFOL 10 MG/ML 20 ML VIAL IV ONE (12:01)
[2023-08-13] MEDS ORDERED: KETOROLAC 15 MG/ML 1 ML VIAL ONE (12:01)
[2023-08-13] MEDS ORDERED: ROCURONIUM 10 MG/ML (5 ML VIAL) IV ONE (12:01)
[2023-08-13] MEDS ORDERED: MIDAZOLAM 2 MG/2 ML VIAL ONE (12:01)
[2023-08-13] MEDS: BUPIVACAINE (PF) 0.25% 30 ML VIAL SQ ONE (12:01)
[2023-08-13] MEDS ORDERED: NEOSTIGMINE 1 MG/ML 10 ML VIAL ONE (12:01)
[2023-08-13] MEDS ORDERED: PHENYLEPHRINE-0.9% NACL SYG 1,000 MCG/10 ML SYRINGE ONE (12:01)
--- NOTE | 2023-08-13 13:28 | P.OP ---
Date of Procedure: 08/13/23 Procedure(s) Performed: PREOPERATIVE DIAGNOSIS: Chronic cholecystitis POSTOPERATIVE DIAGNOSIS: Same PROCEDURE: Laparoscopic cholecystectomy SURGEON: Cindy EBL: Minimal see anesthesia record ANESTHESIA: Gen. COMPLICATIONS: None OPERATIVE PROCEDURE: The patient was brought and placed on the operating room table in the supine position. The patient was placed under general anesthesia at that time. The abdomen was prepped and draped in the usual sterile fashion. A small vertical infraumbilical incision was made. The fascia was grasped with the Ruchi forceps. The fascia was retracted anteriorly. The Veress needle was advanced into the peritoneal cavity. The saline drop test was normal. Insufflation took place up to 15 mmHg. A 5 mm optical trocar was advanced and the peritoneal cavity. 2 additional 5 mm trochars were placed in the right upper quadrant under direct visualization. A 12 mm trocar was advanced into the epigastric incision site. The gallbladder was retracted superiorly and laterally. The peritoneum overlying the infundibulum was bluntly dissected. The patient's cystic duct was visualized. The junction between the cystic duct common and hepatic duct was identified. The critical view of safety was achieved after blunt dissection. The cystic duct was then divided after placement of 3 12 mm clips on the patient's side and one on the specimen side. The cystic artery was identified and clipped as well. A small vessel was seen along the gallbladder fossa and clipped as well. The gallbladder was then removed from the liver bed using electrocautery. The gallbladder was then removed from the epigastric trocar site with an Endo Catch bag. The gallbladder fossa was irrigated with saline. There was no evidence of any bleeding or biliary drainage seen. The fascia at the 12 millimeter site was closed using a Emerson-Miguel 0 Vicryl stitch. The trochars were then removed. The skin at all 4 sites was closed using a 4-0 Monocryl stitch. Skin glue was utilized on the incision sites. At the end of this procedure the sponge and needle counts were correct. DISPOSITION: Stable to the recovery room
[2023-08-13 13:31] VITALS: TEMP 97.3
[2023-08-13] MEDS: HYDROmorphone 0.5 MG/0.5 ML SYRINGE IVP PRN (13:43)
[2023-08-13] MEDS: METOCLOPRAMIDE 5 MG/ML 2 ML VIAL IVP STA (15:00)
[2023-08-13 15:06] VITALS: RESP 18
[2023-08-13 15:28] VITALS: BP 122/79; PULSE 71
[2023-08-13] MEDS: droPERidol 5 MG/2 ML VIAL IVP ONE (16:23)
[2023-08-13] MEDS ORDERED: IBUPROFEN 600 MG TAB PO SCH (16:30)
[2023-08-13] MEDS ORDERED: ACETAMINOPHEN TAB 325 MG TAB PO SCH (18:00)
== END 2023-08-13 17:09 | disposition home or self-care (01) ==
LOC: OR 10:34
PROVIDERS: ATTEND Surgery
DX: K80.10 Calculus of gallbladder with chronic cholecystitis without obstruction (principal); K58.9 Irritable bowel syndrome, unspecified; K21.9 Gastro-esophageal reflux disease without esophagitis; F41.9 Anxiety disorder, unspecified; F32.A Depression, unspecified; F12.90 Cannabis use, unspecified, uncomplicated; Z98.890 Other specified postprocedural states; Z79.899 Other long term (current) drug therapy
CPT/HCPCS: 81025; 88304; 47562; J2250; J0330; J1644; J1100; J2710; J2765; J0690; J2405; J3010; J3490; J1170 ×2; J1885; J2704; J1790; J2371; J0665